=== PATIENT | female | born 1955 | race Caucasian/White ===

== ENCOUNTER 2016-11-26 13:46 | Emergency (ER) | payer OTHER ==
--- NOTE | 2016-11-26 14:26 | EDPHY ---
H & P Time Seen by Provider: 11/26/16 14:21 HPI/ROS: CHIEF COMPLAINT: Acute left shoulder pain HISTORY OF PRESENT ILLNESS: 61-year-old female visiting from [place] was on a Segway tour of [employer], sustained a mechanical fall onto her left shoulder. Reproducible pain with range of motion, palpation. Denies: Head injury, back pain, dyspnea, chest pain, straddle injury, abdominal pain, loss of consciousness, peripheral paresthesia, weakness, numbness, midline C-spine pain. PHYSICAL EXAM (Prior to examination, patient consented to physical exam, hands were washed and my usual and customary physical exam procedures followed) 1) GENERAL: Well-developed, well-nourished, alert and oriented. Appears to be in no acute distress. 2) HEAD: Normocephalic 3) HEENT: Pupils equal, round, reactive to light bilaterally. 4) LUNGS: Breathing comfortably. 5) MUSCULOSKELETAL: Soft compartments. Normal coloration. Tender to palpation superior aspect left shoulder with reproducible pain with range of motion and palpation. 6) SKIN: intact. No ecchymosis 7) VASCULAR: pulses and cap refill present are brisk 8) NEUROLOGIC: Radial, ulnar, median nerve function intact with no deficits appreciated on exam DIFFERENTIAL DIAGNOSIS: in no particular order including but not limited to fracture, sprain, compartment syndrome Xray of the left shoulder interpreted by myself: no definitive acute osseous abnormality Procedure: Splint An upper extremity slingwas applied by ER classroom technology technician. After application of the splint I returned and re-examined the patient. The splint was adequately immobilizing the joint and distal to the splint the patient's circulation and sensation were intact. Patient shows no signs of compartment syndrome. Was given orthopedic precautions. Smoking Status: Former smoker Constitutional: Initial Vital Signs Temperature (C) 36.7 C 11/26/16 13:55 Heart Rate 64 11/26/16 13:55 Respiratory Rate 16 11/26/16 13:55 Blood Pressure 120/86 H 11/26/16 13:55 O2 Sat (%) 97 11/26/16 13:55 O2 Delivery Mode Room Air Allergies/Adverse Reactions: No Known Allergies Allergy (Unverified 11/26/16 14:03) Home Medications: Medication Instructions Recorded Hydrochlorquinoline 11/26/16 Hydrocodone/APAP 5/325 [[place] 1 tab PO Q6 PRN #10 tab 11/26/16 5/325 (RX)] Lisinopril [Zestril 20 mg (*)] 20 mg PO 11/26/16 MDM/Departure - MDM Diagnostics: 3 Views Left Shoulder. Clinical Indications: Left shoulder pain following a fall in a 61-year-old female; no previous studies are available for comparison. Findings: A fracture is not identified. On the images the humeral head appears to project somewhat low compared to the glenoid madelyn however, I believe that this is artifactual and related to patient positioning rather than reflecting a humeral head displacement. Impression: Negative for fracture. Results called and discussed with VARSHA Morales at 11/26/2016 14:57 Dictated By: Bishop Hui MD Images reviewed by myself ED Course/Re-evaluation: Re-evaluation with serial exams. Neurovascular intact. Recommend follow up with orthopedic surgeon or she returns to [place] in a few days however given the name of local orthopedic surgeon as well. Usual and customary orthopedic precautions and instructions provided. - Depart Disposition: Home, Routine, Self-Care Clinical Impression: Sprain of left shoulder Qualifiers: Encounter type: initial encounter Shoulder sprain type: unspecified sprain Qualified Code(s): S43.402A - Unspecified sprain of left shoulder joint, initial encounter Condition: Good Instructions: Shoulder Sprain (ED) Additional Instructions: Return to the ER immediately if you experience discoloration, have worsening pain, numbness, tingling, or any other symptoms that concern you. If you received x-rays in the emergency department today, be advised, that ligamentous , tendon, muscular, and other non-bony injury cannot be fully ruled out. Try to keep your affected extremity elevated above the level of your chest, and keep cold packs on the affected area, for the next 48 hours. Prescriptions: Hydrocodone/APAP 5/325 [[place] 5/325 (RX)] 1 tab PO Q6 PRN #10 tab PRN Reason: Pain, Severe Referrals: Kaitlynn Espino MD [Medical Doctor] - 5-7 days, call for appt.
[2016-11-26 15:31] VITALS: BP 132/87; PULSE 67; RESP 15; TEMP 97.7; O2SAT 95
== END 2016-11-26 15:31 | disposition home or self-care (01) ==
DX: S43.402A Unspecified sprain of left shoulder joint, initial encounter (principal); Z87.891 Personal history of nicotine dependence; W18.39XA Other fall on same level, initial encounter; Y92.89 Other specified places as the place of occurrence of the external cause
CPT/HCPCS: A4565